=== PATIENT | female | born 1970 | race Hispanic/Latino ===

== ENCOUNTER 2024-11-15 13:56 | Outpatient (CLI) | payer OTHER, SELFPAY ==
[2024-11-15 14:10] VITALS: BP 147/65; PULSE 81; RESP 16; TEMP 36.9; O2SAT 100; BMI 21.9
--- NOTE | 2024-11-15 14:14 | DI.RAD.S_ITS ---
PROCEDURE: XR KNEE RT 3V INDICATIONS: injury, twist, hit hard floor TECHNIQUE: 3 views of the knee were acquired. COMPARISON: None. FINDINGS: Bones: No fractures or dislocations. No suspicious bony lesions. Minimal to mild generalized degenerative changes are seen. Soft tissues: No joint effusion. No suspicious soft tissue calcifications. IMPRESSION: Unremarkable plain films for age. If it would be helpful for clinical management decision making, please consider a dedicated, scheduled knee MRI for further evaluation (assuming that there is no contraindication). Dictated by: Maximo Roy M.D. on 11/15/2024 at 14:13 Approved by: Maximo Roy M.D. on 11/15/2024 at 14:13
--- NOTE | 2024-11-15 16:17 | ED.LOWEXIN ---
HPI - Extremity Injury (Lower) <Floridalma Mccarty PA-C - Last Filed: 11/15/24 17:27> General Chief Complaint: Extremity Injury, Lower Stated Complaint: right knee injury Time Seen by Provider: 11/15/24 15:57 Source: patient Mode of arrival: Ambulatory History of Present Illness HPI Narrative: Ms. Lopez is a very pleasant 54-year-old female with a past medical history of lupus who presents to the emergency department for right knee injury that occurred at work prior to arrival. Patient works at [employer], she was walking around inside when she slipped on a puddle causing her left leg to extend forward and her right knee to flex and bend behind her. The front of the knee also hit on the floor before it twisted. She did not sustain any other injuries to her upper extremities, head, neck or back. She is now having pain on the front of the right knee worse on the medial side and she does have a bruise developing. She describes the pain as a tickling sharp pain worse with movement and with bearing weight. She denies any prior injuries to this knee. No medications prior to arrival. Related Data Allergies Allergy/AdvReac Type Severity Reaction Status Date / Time No Known Drug Allergies Allergy Verified 11/15/24 14:10 Review of Systems <Floridalma Mccarty PA-C - Last Filed: 11/15/24 17:27> Review of Systems ROS Unobtainable: All systems reviewed & are unremarkable except as noted in HPI and below Patient History <Floridalma Mccarty PA-C - Last Filed: 11/15/24 17:27> Social History Smoking Status: Never smoker Smoking Status: Never smoker Exam <Floridalma Mccarty PA-C - Last Filed: 11/15/24 17:27> Narrative Exam Narrative: GENERAL: 54 year old patient appears stated age. Well-developed patient, in no acute distress. HEAD: Atraumatic. Normocephalic. NECK: Trachea midline. Cervical ROM intact. CARDIOVASCULAR: Regular rate RESPIRATORY: ?Nonlabored respirations. ?Speaking in clear, full sentences. ? GASTROINTESTINAL: Abdomen soft, non-tender, nondistended. EXTREMITIES: Strong DP and PT pulses bilaterally, feet are warm and well perfused. On the anterior right knee patient has ecchymosis and tenderness to palpation of the patellar tendon. No reproducible laxity however she does have pain with range of motion of the knee. No tenderness to palpation of bilateral feet, ankles, shins, thighs. NEURO: AOx3. ?Clear speech. ?Moves all 4 extremities appropriately with the exception of right knee. SKIN: Warm, dry. No rashes. No open wounds. Initial Vital Signs Initial Vital Signs: Vital Signs Temperature 98.4 F 11/15/24 14:10 Pulse Rate 81 11/15/24 14:10 Respiratory Rate 16 11/15/24 14:10 Blood Pressure 147/65 H 11/15/24 14:10 Pulse Oximetry 100 11/15/24 14:10 Oxygen Delivery Method Room Air 11/15/24 14:10 <DO Jimbo Luo Last Filed: 11/15/24 19:10> Initial Vital Signs Initial Vital Signs: Vital Signs Temperature 98.4 F 11/15/24 14:10 Pulse Rate 81 11/15/24 14:10 Respiratory Rate 16 11/15/24 14:10 Blood Pressure 147/65 H 11/15/24 14:10 Pulse Oximetry 100 11/15/24 14:10 Oxygen Delivery Method Room Air 11/15/24 14:10 Course <Floridalma Mccarty PA-C - Last Filed: 11/15/24 17:27> Orders Ordered: ED Orders 11/15/24 14:14 XR knee RT 3V Stat Discontinued Medications Acetaminophen (Acetaminophen 325 Mg Tablet) 650 mg PO NOW ONE Stop: 11/15/24 16:33 Last Admin: 11/15/24 17:13 Dose: 650 mg Documented By: TRUDY Ibuprofen (Ibuprofen 400 Mg Tablet) 400 mg PO NOW ONE Stop: 11/15/24 16:33 Last Admin: 11/15/24 17:12 Dose: 400 mg Documented By: TRUDY Vital Signs Vital signs: Vital Signs - 8 hr 11/15/24 14:10 11/15/24 17:37 Temperature 98.4 F 97.8 F Pulse Rate 81 78 Respiratory Rate 16 16 Blood Pressure 147/65 H 125/87 Pulse Oximetry 100 99 Oxygen Delivery Method Room Air Room Air <DO Jimbo Luo Last Filed: 11/15/24 19:10> Orders Ordered: ED Orders 11/15/24 14:14 XR knee RT 3V Stat Discontinued Medications Acetaminophen (Acetaminophen 325 Mg Tablet) 650 mg PO NOW ONE Stop: 11/15/24 16:33 Last Admin: 11/15/24 17:13 Dose: 650 mg Documented By: TRUDY Ibuprofen (Ibuprofen 400 Mg Tablet) 400 mg PO NOW ONE Stop: 11/15/24 16:33 Last Admin: 11/15/24 17:12 Dose: 400 mg Documented By: TRUDY Vital Signs Vital signs: Vital Signs - 8 hr 11/15/24 14:10 11/15/24 17:37 Temperature 98.4 F 97.8 F Pulse Rate 81 78 Respiratory Rate 16 16 Blood Pressure 147/65 H 125/87 Pulse Oximetry 100 99 Oxygen Delivery Method Room Air Room Air MDM - Extremity Injury (Lower) <Floridalma Mccarty PA-C - Last Filed: 11/15/24 17:27> Imaging Data Right Knee X-Ray: Radiologist's Impression: PROCEDURE: XR KNEE RT 3V INDICATIONS: injury, twist, hit hard floor TECHNIQUE: 3 views of the knee were acquired. COMPARISON: None. FINDINGS: Bones: No fractures or dislocations. No suspicious bony lesions. Minimal to mild generalized degenerative changes are seen. Soft tissues: No joint effusion. No suspicious soft tissue calcifications. IMPRESSION: Unremarkable plain films for age. If it would be helpful for clinical management decision making, please consider a dedicated, scheduled knee MRI for further evaluation (assuming that there is no contraindication). Dictated by: Maximo Roy M.D. on 11/15/2024 at 14:13 Approved by: Maximo Roy M.D. on 11/15/2024 at 14:13 [facility] Narrative Medical decision making narrative: 54-year-old female with a past medical history of lupus who presents to the emergency department for right knee injury that occurred at work prior to arrival. Differential diagnosis includes but isn't limited to right knee sprain, strain, fracture, contusion, etc. On exam patient is in no acute distress, nontoxic appearing vital signs within normal limits. Her right lower extremities neurovascularly intact. She does have tenderness to palpation of the anterior right knee, pain with range of motion, in an anterior bruise. X-ray obtained reveals no acute fracture or dislocation, there is minimal to mild generalized degenerative changes. We will treat patient with ibuprofen, Tylenol, Gautam wrap, crutches, rice therapy. [facility] if needed. Patient verbalized understanding of all information, is agreeable with the plan, all questions answered, stable for discharge home. L&I paperwork filled out. Discharge Plan Departure Patient Disposition: Home Clinical Impression: Contusion of knee, right Qualifiers: Encounter type: initial encounter Qualified Code(s): S80.01XA - Contusion of right knee, initial encounter Right knee sprain Qualifiers: Encounter type: initial encounter Involved ligament of knee: unspecified ligament Qualified Code(s): S83.91XA - Sprain of unspecified site of right knee, initial encounter Fall from slipping Qualifiers: Encounter type: initial encounter Qualified Code(s): W01.0XXA - Fall on same level from slipping, tripping and stumbling without subsequent striking against object, initial encounter ED Sign-out <Lilly Greenfield DO - Last Filed: 11/15/24 19:10> Cosign ED Attending Bradfordature Attestation: I was immediately available in the department for consultation.
[2024-11-15] MEDS: IBUPROFEN 400 MG TABLET PO (17:12)
[2024-11-15] MEDS: ACETAMINOPHEN 325 MG TABLET 650 MG PO (17:13)
[2024-11-15 17:37] VITALS: BP 125/87; PULSE 78; RESP 16; TEMP 36.6; O2SAT 99
== END 2024-11-15 17:41 ==
LOC: ED 16:41 → DI 17:42 → ED 11-16 09:26
PROVIDERS: Emergency Provider Physician Assistant
DX: S80.01XA Contusion of right knee, initial encounter (principal); S83.91XA Sprain of unspecified site of right knee, initial encounter; W01.0XXA Fall on same level from slipping, tripping and stumbling without subsequent striking against object, initial encounter; Y99.0 Civilian activity done for income or pay
CPT/HCPCS: 73562; 99283

== ENCOUNTER 2025-06-06 13:05 | Emergency (ER) | payer OTHER, SELFPAY ==
[2025-06-06 13:37] VITALS: BP 123/58; PULSE 65; RESP 18; TEMP 36.7; O2SAT 99; BMI 22.6
--- NOTE | 2025-06-06 13:40 | DI.RAD.S_ITS ---
PROCEDURE: XR KNEE LT 3V INDICATIONS: pain, swelling TECHNIQUE: 3 views of the knee were acquired. COMPARISON: [facility], CR, XR KNEE RT 3V, 11/15/2024, 14:12. FINDINGS: Bones: No fractures or dislocations. No suspicious bony lesions. Soft tissues: No joint effusion. No suspicious soft tissue calcifications. IMPRESSION: No acute bony abnormality or significant effusion. Dictated by: Mulugeta Barbosa M.D. on 06/06/2025 at 13:39 Approved by: Mulugeta Barbosa M.D. on 06/06/2025 at 13:39
--- NOTE | 2025-06-06 17:51 | ED.EXTPRO ---
HPI - Extremity Problem <Floridalma Mccarty PA-C - Last Filed: 06/07/25 10:46> General Chief complaint: Extremity Problem,Nontraumatic Stated complaint: px in lt knee ~3 days Time Seen by Provider: 06/06/25 13:10 Source: patient Mode of arrival: Family Vehicle History of Present Illness HPI Narrative: Ms. Lopez is a pleasant 55-year-old female who presents to the emergency department for concern of left knee pain x3 days. Patient states that she works at [employer] and she is on her feet most of the day. She denies any specific injury that caused her pain 3 days ago however she reports that she did have a fall a few months ago in which she injured both of her knees primarily the right. However 3 days ago she just started having pain in the anterior medial portion of her knee that is worse with weight-bearing. She also reports some tingling sensation overlying the kneecap. No numbness tingling or weakness distal to this area, and no open wounds. Denies fevers, chills, flu-like symptoms, calf swelling or tenderness. She could not go to work today due to the pain. Related Data Allergies Allergy/AdvReac Type Severity Reaction Status Date / Time No Known Drug Allergies Allergy Verified 06/06/25 13:37 Review of Systems <Floridalma Mccarty PA-C - Last Filed: 06/07/25 10:46> Review of Systems ROS Unobtainable: All systems reviewed & are unremarkable except as noted in HPI and below Patient History <Floridalma Mccarty PA-C - Last Filed: 06/07/25 10:46> Social History Smoking Status: Never smoker Smoking Status: Never smoker Exam <Floridalma Mccarty PA-C - Last Filed: 06/07/25 10:46> Narrative Exam Narrative: GENERAL: 55 year old patient appears stated age. Well-developed patient, in no acute distress. CARDIOVASCULAR: Regular rate RESPIRATORY: ?Nonlabored respirations. ?Speaking in clear, full sentences. EXTREMITIES: Tenderness to palpation of the left quadriceps tendon and the anterior medial knee with no deformities. Patient is able to fully flex and extend the left knee. No gross reproducible laxity. No effusion. No calf swelling or tenderness. Palpable DP and PT pulse present and brisk cap refill in toes. NEURO: AOx3. ?Clear speech. ?Sensation intact to light touch on dorsal and plantar aspect of the left foot. SKIN: No rash or erythema of visible areas Initial Vital Signs Initial Vital Signs: Vital Signs Temperature 98.1 F 06/06/25 13:37 Pulse Rate 65 06/06/25 13:37 Respiratory Rate 18 06/06/25 13:37 Blood Pressure 123/58 L 06/06/25 13:37 Pulse Oximetry 99 06/06/25 13:37 Oxygen Delivery Method Room Air 06/06/25 13:37 <Carola Cleaning MD - Last Filed: 06/08/25 01:28> Initial Vital Signs Initial Vital Signs: Vital Signs Temperature 98.1 F 06/06/25 13:37 Pulse Rate 65 06/06/25 13:37 Respiratory Rate 18 06/06/25 13:37 Blood Pressure 123/58 L 06/06/25 13:37 Pulse Oximetry 99 06/06/25 13:37 Oxygen Delivery Method Room Air 06/06/25 13:37 Course <Floridalma Mccarty PA-C - Last Filed: 06/07/25 10:46> Orders Ordered: Discontinued Medications Acetaminophen (Acetaminophen 325 Mg Tablet) 975 mg PO NOW ONE Stop: 06/06/25 18:03 Last Admin: 06/06/25 18:16 Dose: 975 mg Documented By: AV Ibuprofen (Ibuprofen 400 Mg Tablet) 400 mg PO NOW ONE Stop: 06/06/25 18:03 Last Admin: 06/06/25 18:16 Dose: 400 mg Documented By: AV Vital Signs Vital signs: Vital Signs - 8 hr 06/06/25 13:37 Temperature 98.1 F Pulse Rate 65 Respiratory Rate 18 Blood Pressure 123/58 L Pulse Oximetry 99 Oxygen Delivery Method Room Air <Carola Cleaning MD - Last Filed: 06/08/25 01:28> Orders Ordered: Discontinued Medications Acetaminophen (Acetaminophen 325 Mg Tablet) 975 mg PO NOW ONE Stop: 06/06/25 18:03 Last Admin: 06/06/25 18:16 Dose: 975 mg Documented By: AV Ibuprofen (Ibuprofen 400 Mg Tablet) 400 mg PO NOW ONE Stop: 06/06/25 18:03 Last Admin: 06/06/25 18:16 Dose: 400 mg Documented By: AV Vital Signs Vital signs: Vital Signs - 8 hr 06/06/25 13:37 Temperature 98.1 F Pulse Rate 65 Respiratory Rate 18 Blood Pressure 123/58 L Pulse Oximetry 99 Oxygen Delivery Method Room Air MDM - Extremity (Nontraumatic) <Floridalma Mccarty PA-C - Last Filed: 06/07/25 10:46> Medical Records Attestation: I reviewed the patient's medical records. Imaging Data Left Knee X-Ray: Radiologist's Impression: PROCEDURE: XR KNEE LT 3V INDICATIONS: pain, swelling TECHNIQUE: 3 views of the knee were acquired. COMPARISON: [facility], CR, XR KNEE RT 3V, 11/15/2024, 14:12. FINDINGS: Bones: No fractures or dislocations. No suspicious bony lesions. Soft tissues: No joint effusion. No suspicious soft tissue calcifications. IMPRESSION: No acute bony abnormality or significant effusion. Dictated by: Mulugeta Barbosa M.D. on 06/06/2025 at 13:39 Approved by: Mulugeta Barbosa M.D. on 06/06/2025 at 13:39 [facility] Narrative Medical decision making narrative: 55-year-old female who presents to the emergency department for concern of left knee pain x3 days. No specific trauma but pain is worse with range of motion and weight-bearing. Differential diagnosis includes but is not limited to left knee sprain, strain, fracture, dislocation, osteoarthritis, tendinitis, overuse injury, etc. On exam the patient is in no acute distress, nontoxic appearing, vital signs appropriate. She is tenderness to palpation to the left quadriceps tendon in the medial anterior knee. No deformities. She is neurovascularly intact. X-ray left knee obtained reveals no fractures or dislocations, no suspicious bony lesions, no soft joint effusion, no suspicious soft tissue calcifications. Concern at this time for possible tendonitis or overuse injury. Patient was placed into a left knee Gautam wrap, encouraged rice therapy, follow up with Orthopedics or PCP, ibuprofen and acetaminophen. Discussed ER return precautions. Patient declines need for crutches that she has some at home. She verbalized understanding of all information agreeable with the plan. She is stable for discharge at this time. Discharge Plan Departure Patient Disposition: Home Clinical Impression: Overuse injury of lower leg Knee pain, left Qualifiers: Chronicity: acute Qualified Code(s): M25.562 - Pain in left knee Instructions: DI for Knee Pain Activity Restrictions/Additional Instructions: Dear Ms. Lopez, Thank you for coming to the emergency department. I am very sorry that you have been having left knee pain. I do recommend that you continue wearing a left knee brace and following up with your primary care doctor. Please use RICE therapy for your pain in addition to ibuprofen/acetaminophen. Rest the painful area. Ice the area of pain/swelling for at least 15 minutes, 4x a day. Compress the area of swelling using a brace, wrap, or splint if applied. Elevate the painful or swollen extremity by supporting it above the level of the heart with pillows when sitting or laying. Please take Ibuprofen (Motrin/Advil) or Acetaminophen (Tylenol) for pain. These are available over the counter. You may take Ibuprofen 600 mg every 8 hours with food for pain. You may also take Acetaminophen 650 mg every 4-6 hours for pain. Do not exceed 3000 mg of Tylenol a day as this can cause liver damage. Do not drink alcohol with either of these medications. Please follow up with your primary care doctor within the next 2-3 days for ER follow-up. (If you do not have a PCP you can call [phone]. ?to schedule an appointment with an [facility] Primary Care Provider) IF YOU DEVELOP ANY NEW OR WORSENING SYMPTOMS, RETURN TO THE ER! Please read the attached instructions, they highlight more specific treatments and interventions for you at home. Thank you for letting me participate in your care, Floridalma Mccarty PA-C Stand Alone Forms: Patient Portal/API, Work Release Note ED Sign-out <Carola Cleaning MD - Last Filed: 06/08/25 01:28> Cosign ED Attending Bradfordature Attestation: I did not personally see or examine the patient but was available for consultation and supervision throughout the encounter. I reviewed the documentation and agree with the assessment and plan as written. Carola Cleaning MD Emergency Medicine
[2025-06-06] MEDS: ACETAMINOPHEN 325 MG TABLET 975 MG PO (18:16)
[2025-06-06] MEDS: IBUPROFEN 400 MG TABLET PO (18:16)
--- NOTE | 2025-06-06 18:46 | PC.NURSE ---
full exam done by provider,
== END 2025-06-06 18:36 | disposition home or self-care (01) ==
PROVIDERS: Emergency Provider Physician Assistant
DX: S89.82XA Other specified injuries of left lower leg, initial encounter (principal); M25.562 Pain in left knee; X50.9XXA Other and unspecified overexertion or strenuous movements or postures, initial encounter; Y99.0 Civilian activity done for income or pay
CPT/HCPCS: 73562; 99283